=== PATIENT | male | born 1970 | race Caucasian/White ===

== ENCOUNTER → 2018-06-15 | Outpatient (REF) | payer BC ==
[~2018-06-15] MED LIST: SIMV10TA2 PO; ZOVI800T PO
[2018-06-27 08:43] LABS: DRVV SCREEN 46.7 SEC
[2018-06-27 08:46] LABS: PTT LUPUS TYPE ANTICOAG SCREEN 1.1 (0-1.2)
== END ==
LOC: M LABNEURO 11:26
PROVIDERS: ATTEND Psychiatry & Neurology Neurology
DX: M54.5 Low back pain (principal)

== ENCOUNTER → 2018-06-16 | Outpatient (REF) | payer BC ==
[2018-06-16 14:06] LABS: RHEUMATOID FACTOR QUANT < 10.0 IU/ML (<15.0); TOTAL PROTEIN 6.8 GM/DL (6.4-8.2)
[2018-06-16 14:15] LABS: FOLATE > 24.0 NG/ML; VITAMIN B12 LEVEL 511 PG/ML
[2018-06-17 13:58] LABS: ALBUMIN 4.56 GM/DL (3.29-5.55); ALPHA-1-GLOBULIN % 3.4 % (2.9-4.9); ALPHA-1-GLOBULINS 0.23 GM/DL (0.17-0.41); ALPHA-2-GLOBULINS 0.64 GM/DL (0.42-0.99); ALPHA-2-GLOBULINS % 9.4 % (7.1-11.8); BETA-1-GLOBULINS 0.42 GM/DL (0.28-0.60); BETA-1-GLOBULINS % 6.2 % (4.7-7.2); BETA-2-GLOBULINS 0.35 GM/DL (0.19-0.55); BETA-2-GLOBULINS % 5.1 % (3.2-6.5); GAMMA GLOBULIN % 8.9 % (11.1-18.8); GAMMA GLOBULINS 0.61 GM/DL (0.65-1.58)
[2018-06-17 14:15] LABS: ANTINUCLEAR ANTIBODIES DIRECT Negative (Negative)
== END ==
LOC: M LABNEURO 10:46
PROVIDERS: ATTEND Psychiatry & Neurology Neurology
DX: M54.5 Low back pain (principal); G62.9 Polyneuropathy, unspecified

== ENCOUNTER 2018-09-16 06:49 | Day surgery (SDC) | payer BC ==
[~2018-09-16] VITALS: Ht 165.1 cm; Wt 82.1 kg
[~2018-09-16 06:49] MED LIST changes: +ASPI81TA85 PO; +GABA-843 PO
[2018-09-16] MEDS ORDERED: NS 1,000 ML IV ONE (07:15)
[2018-09-16] MEDS ORDERED: PROPOFOL 200 MG/20 ML VIAL As Ordered ONE (07:39)
[2018-09-16] MEDS ORDERED: LIDOCAINE 2% INJ 100 MG/5 ML SDV (FOR ANES.) As Ordered ONE (07:39)
[2018-09-16] MEDS ORDERED: GLYCOPYRROLATE INJ 0.2 MG/ML 2 ML VIAL As Ordered ONE (08:05)
[2018-09-16 08:30] VITALS: BP 126/85
--- NOTE | 2018-09-16 10:56 | ROOR ---
Patient Name: Efra Antoine Procedure Date: 09/16/2018 7:32 AM Date of : 1970 Age: 48 Room: [facility] Gender: Male Note Status: Finalized Procedure: Colonoscopy Indications: High risk colon cancer surveillance: Personal history of colonic polyps, Last colonoscopy: July 2015 Providers: Yo HORNER MD Referring MD: JAMEL RAMOS Requesting Provider: Medicines: Monitored Anesthesia Care Complications: No immediate complications. Procedure: Pre-Anesthesia Assessment: - The heart rate, respiratory rate, oxygen saturations, blood pressure, adequacy of pulmonary ventilation, and response to care were monitored throughout the procedure. The Colonoscope was introduced through the anus and advanced to the cecum, identified by appendiceal orifice and ileocecal valve. The colonoscopy was performed without difficulty. The patient tolerated the procedure well. The quality of the bowel preparation was good. Findings: The perianal and digital rectal examinations were normal. Retroflexion in the right colon was performed. Small Internal Hemorrhoids. The entire examined colon appeared normal on direct and retroflexion views. Impression: - Small Internal Hemorrhoids. - The entire examined colon is normal on direct and retroflexion views. - No specimens collected. Recommendation: - Repeat colonoscopy in 5 years for surveillance based on personal history of previous adenomatous polyps. Yo Horner MD Yo HORNER MD 09/16/2018 7:52:14 AM This report has been signed electronically. Number of Addenda: 0 Note Initiated On: 09/16/2018 7:32 AM Estimated Blood Loss: Estimated blood loss: none.
== END 2018-09-16 08:40 | disposition home or self-care (01) ==
LOC: M OPP 06:49
PROVIDERS: ATTEND Internal Medicine Gastroenterology
DX: Z12.11 Encounter for screening for malignant neoplasm of colon (principal); Z86.010 Personal history of colon polyps; K64.8 Other hemorrhoids; Z79.82 Long term (current) use of aspirin; Z79.899 Other long term (current) drug therapy; Z80.0 Family history of malignant neoplasm of digestive organs; Z87.891 Personal history of nicotine dependence

== ENCOUNTER → 2019-05-11 | Outpatient (REF) | payer BC ==
[2019-05-11 14:15] LABS: BASO % 0.6 % (0.0-1.0); EOS # 0.1 10^3/uL (0.0-0.5); EOS % 2.1 % (0.0-3.0); HEMATOCRIT 47.5 % (42.0-52.0); HEMOGLOBIN 15.2 g/dl (13.5-17.5); LYMPH # 1.8 10^3/uL (1.5-5.0); LYMPH % 33.8 % (24.0-44.0); MEAN CORPUSCULAR HEMOGLOBIN 30.2 pg (27.0-33.0); MEAN CORPUSCULAR VOLUME 94.4 fl (80.0-96.0); MONO # 0.5 10^3/uL (0.0-0.8); MONO % 9.6 % (0.0-5.0); NEUTROPHILS # 2.8 10^3/uL (1.5-8.5); NEUTROPHILS % 53.3 % (36.0-66.0); PLATELET COUNT, AUTOMATED 202 10^3/uL (150-450); RED BLOOD COUNT 5.03 10^6/uL (4.30-6.10); WHITE BLOOD COUNT 5.2 10^3/uL (4.0-10.0)
[2019-05-11 14:20] LABS: ALBUMIN 4.3 GM/DL (3.2-5.2); ALT/SGPT 43 U/L (12-78); BILIRUBIN,TOTAL 0.3 MG/DL (0.2-1.0); BLOOD UREA NITROGEN 21 MG/DL (7-18); CALCIUM LEVEL 9.2 MG/DL (8.5-10.1); CARBON DIOXIDE LEVEL 27 MEQ/L (21-32); CHLORIDE LEVEL 112 MEQ/L (98-107); CREATININE FOR GFR 1.06 MG/DL (0.70-1.30); GLOMERULAR FILTRATION RATE > 60.0 (>56); GLUCOSE, FASTING 101 MG/DL (70-100); POTASSIUM SERUM 4.5 MEQ/L (3.5-5.1); SODIUM LEVEL 144 MEQ/L (136-145); TOTAL PROTEIN 7.4 GM/DL (6.4-8.2)
== END ==
LOC: M LABNEURO 10:29
PROVIDERS: ATTEND Psychiatry & Neurology Neurology
DX: M54.5 Low back pain (principal)

== ENCOUNTER 2019-09-14 14:49 | Emergency (ER) | payer BC ==
[~2019-09-14] VITALS: Ht 165.1 cm; Wt 76.7 kg
[~2019-09-14 14:49] MED LIST changes: -SIMV10TA2 PO; +SIMV10TA21 PO
[2019-09-14] MEDS ORDERED: NORCO, ANEXSIA 5/325MG TABLET (HYDROcodone/ACETAMINOPHEN) PO ONE (15:45)
[2019-09-14] MEDS ORDERED: LIDOCAINE W/EPINEPHRINE 1% 20ML VIAL SC ONE (16:15)
[2019-09-14 18:18] VITALS: BP 112/70
--- NOTE | 2019-09-15 10:38 | ER ---
DATE OF CONSULTATION: 09/14/2019 REASON FOR CONSULTATION: Thrombosed hemorrhoid. HISTORY OF PRESENT ILLNESS: The patient is a pleasant 49-year-old man who reports no prior history of any anorectal issues. He has had no surgery. He denies any history of known hemorrhoids. He reports that on Thursday the he noted a little mild discomfort in the anal region. By Thursday, he was seen at the [facility] emergency department where they diagnosed a hemorrhoid. He reports that they "tried to push it back in" without success. They recommended some topical creams for the area and advised him that if it got worse, he should go to [place] for treatment. He reports that the pain has intensified and has become unbearable and he presented to the emergency department at 2:49 on September 13. He was seen by the physician's occupational therapist assistant and I am now asked to evaluate his issue. ALLERGIES: The patient denies any known medical allergies. MEDICATIONS: He takes an 81 mg aspirin daily and uses gabapentin 300 mg three times a day. This has not been taken in about 2 weeks. He also has a prescription for some Zovirax. PRIMARY CARE PROVIDER: His primary physician is Dr. Stephany Kelly. PAST MEDICAL HISTORY: Patient has had some hand surgery and has had several colonoscopies due to a family history of colorectal cancer. Medical history is significant for some back pain. FAMILY HISTORY: Family history is significant for history of colorectal cancer. SOCIAL HISTORY: The patient is employed at [employer] and his employment involves some significant lifting. REVIEW OF SYSTEMS: Negative other than those items mentioned in his past medical history. Physical exam is limited to the perineum. He is noted to have an approximately 3 cm wide thrombosed hemorrhoid in a left lateral position. This appears slightly dusky in one small area medially. It is exquisitely tender. There is no sign of infection. IMPRESSION: Thrombosed hemorrhoid of recent onset. PLAN: The patient was counseled for incision and drainage of his thrombosed hemorrhoid. I advised him that this will not relieve all of his discomfort and will create an open wound at the anal verge, but that by relieving the pressure this should resolve significantly faster. He had an opportunity to ask questions. I did perform a incision and drainage and actually a partial excision of his thrombosed hemorrhoid with removal of a large amount of clot. He tolerated this well. This is outlined in a separate procedure note. The wound was wicked with some Betadine gauze. The patient was counseled regarding local wound care including warm soaks or showers for 10 or 5 minutes three to four times per day. He should remove the current wick of gauze later this evening. He should anticipate a small amount of bleeding when he does this. It should be easily controlled by light pressure, if necessary. He should call my office in the morning for a followup appointment in a week to 10 days. I advised him that he should be comfortable enough to return to work on Thursday09/19/2019. He can use mild [id number] analgesics as necessary. REAL
--- NOTE | 2019-09-15 11:48 | RO ---
DATE OF PROCEDURE: 09/14/2019 PREOPERATIVE DIAGNOSIS: Thrombosed hemorrhoid. POSTOPERATIVE DIAGNOSIS: Thrombosed hemorrhoid. PROCEDURE PERFORMED: Incision and drainage and partial excision of large thrombosed hemorrhoid. SURGEON: Dariel Whitaker MD EXECUTIVE DIRECTOR [employer] WORK[employer]: None. ANESTHESIA: Local of 1% Xylocaine with epinephrine. INDICATIONS FOR PROCEDURE: Patient is a 49-year-old man with an approximately three day old large thrombosis of a left lateral hemorrhoid. He is in marked discomfort and is now for incision and drainage. OPERATIVE PROCEDURE: The area was prepped gently with Betadine. Local anesthesia was achieved with infiltration of 1% Xylocaine with epinephrine. A radially oriented elliptical excision of the distended hemorrhoidal tissue was performed. This took out a strip of anoderm about 2 cm in length by a centimeter in width. A large amount of clot was then released. I did some dissection with scissors to open up some additional areas of clotting extending anteriorly and posteriorly, and as much clot as could be was removed. There was no significant bleeding. The wound was wicked with a piece of Betadine gauze and a bulky bandage was applied. The patient tolerated the procedure well. [facility] HOSPITALSalima
== END 2019-09-14 18:23 | disposition home or self-care (01) ==
LOC: M ED 14:49
DX: K64.5 Perianal venous thrombosis (principal); Z80.0 Family history of malignant neoplasm of digestive organs; Z79.82 Long term (current) use of aspirin; Z79.899 Other long term (current) drug therapy

== ENCOUNTER → 2020-01-16 | Outpatient (CLI) | payer BC ==
[~2020-01-16] MED LIST changes: -ASPI81TA85 PO; +ASPI81TA86 PO; +LIDOCAINE 1% MDV 20ML VIAL As Ordered ONE; +TRIAMCINOLONE ACETONIDE SUSP 40 MG/ML VIAL (J3301) As Ordered ONE
--- NOTE | 2020-01-16 18:42 | REP ---
Reason For Exam/Comment: Superior glenoid labral lesion Procedure: Right biceps tendon sheath injection The procedure was performed by BULMARO Dillon, under the direct supervision of Dr. Guerrero. The benefits and risks including but not limited to pain, infection, bleeding and anaphylaxis were explained to the patient and informed consent was obtained both verbally and written. Directly prior to the start of the procedure, a formal timeout was completed in the procedure room. Using ultrasound guidance the right biceps tendon sheath and tendon were localized. The skin was prepped and draped in the usual sterile fashion. Using a 25 gauge needle and ultrasound guidance 2 mL of 1% lidocaine 10 mg/ml was used as a local anesthetic. This 25 gauge needle was advanced into the right biceps tendon sheath. A 3 mL solution containing a 2 mL 1% lidocaine 10 mg/ml and 1 ml of Kenalog 40 mg/ml was injected into the right biceps tendon sheath. The needle was removed and hemostasis was achieved. The patient tolerated the procedure well and there were no immediate complications. Reviewed by BULMARO Bowen 01/16/2020 05:05 P Electronically Signed by Lee Guerrero MD 01/16/2020 06:34 P
== END ==
LOC: M IRPRO 08:41
PROVIDERS: ATTEND Orthopaedic Surgery Sports Medicine
DX: S43.431A Superior glenoid labrum lesion of right shoulder, initial encounter (principal)
CPT/HCPCS: 20611; J3301

== ENCOUNTER → 2020-04-20 | Outpatient (CLI) | payer BC ==
[~2020-04-20] MED LIST changes: -LIDOCAINE 1% MDV 20ML VIAL As Ordered ONE; -TRIAMCINOLONE ACETONIDE SUSP 40 MG/ML VIAL (J3301) As Ordered ONE
--- NOTE | 2020-05-01 13:16 | SLEEPHOME ---
DATE: 04/20/2020 ORDERED BY: Bettie Castro NP Diagnostic home sleep testing was performed due to concern for the obstructive sleep apnea syndrome. For testing, a Nox T3 respiratory monitoring device was used. Continuous record was made of pulse, oxygen saturation, air flow, chest and abdominal strain, and body position. Nine hours and 59 minutes of data were reviewed. There were 8 hours and 4 minutes marked as time in bed. During the interval marked time in bed, there were 69 respiratory events identified of 10 seconds in duration or greater for a respiratory event index of 8.6. The events were primarily obstructive. Baseline pulse rate was 58 beats per minute. Pulse rate ranged 45 to 96. Baseline saturation was 94%. Saturations fell to 84%. Testing was performed in both the supine and nonsupine positions. IMPRESSION: Abnormal home sleep testing with repetitive respiratory events and oxygen desaturations to 84% with a respiratory event index of 8.6 is consistent with the obstructive sleep apnea syndrome. RECOMMENDATION: The patient should be encouraged to undergo a formal sleep evaluation. [facility]
== END ==
LOC: M SLEEP HO 11:04
PROVIDERS: ATTEND Nurse Practitioner Family
DX: R06.83 Snoring (principal)

== ENCOUNTER 2024-01-29 06:48 | Day surgery (SDC) | payer BC ==
[~2024-01-29] VITALS: Ht 165.1 cm; Wt 87.8 kg
[~2024-01-29 06:48] MED LIST changes: +ACYC1TAB4 PO; +B-12100010 PO; +CITA10TA7 PO; +ECOT81TA5 PO; +FENO160T10 PO; +GABA-282 PO; -GABA-843 PO; +LORA-753 PO; +MULTTAB61 PO; +ODOR100T3 PO; +ROSU10TA61 PO
[2024-01-29] MEDS: NS 1,000 ML IV ONE (07:11)
[2024-01-29] MEDS ORDERED: propofoL 200 MG/20 ML VIAL As Ordered ONE (07:38)
[2024-01-29] MEDS ORDERED: LIDOCAINE 2% 100MG/5ML SDV (FOR ANES.) As Ordered ONE (07:39)
[2024-01-29 08:09] VITALS: TEMP 97.1
[2024-01-29 08:25] VITALS: BP 114/63; O2SAT 95
== END 2024-01-29 08:31 | disposition home or self-care (01) ==
LOC: M OPP 06:48
PROVIDERS: ATTEND Internal Medicine Gastroenterology
DX: Z12.11 Encounter for screening for malignant neoplasm of colon (principal); K63.5 Polyp of colon; K64.8 Other hemorrhoids; Z86.010 Personal history of colon polyps; Z80.0 Family history of malignant neoplasm of digestive organs; F17.220 Nicotine dependence, chewing tobacco, uncomplicated; G47.30 Sleep apnea, unspecified; Z99.89 Dependence on other enabling machines and devices; Z79.02 Long term (current) use of antithrombotics/antiplatelets; Z79.2 Long term (current) use of antibiotics; Z79.891 Long term (current) use of opiate analgesic; Z79.899 Other long term (current) drug therapy

== ENCOUNTER 2025-05-08 19:46 | Emergency (ER) | payer BC ==
[~2025-05-08] VITALS: Ht 165.1 cm; Wt 95.4 kg
[~2025-05-08 19:46] MED LIST changes: +GABA-1172 PO; -GABA-282 PO; -ROSU10TA61 PO; +ROSU10TA90 PO
[2025-05-08 23:04] VITALS: TEMP 97.6
[2025-05-08] MEDS: IPRATROPIUM 0.5 MG/ALBUTEROL 2.5 MG INH SOL UD 3 ML NEB ONE (23:39)
[2025-05-08 23:45] VITALS: BP 123/77; O2SAT 100
[2025-05-09] MEDS ORDERED: IPRATROPIUM 0.5 MG/ALBUTEROL 2.5 MG INH SOL UD 3 ML NEB ONE
[2025-05-09] MEDS ORDERED: BENZONATATE 100 MG CAPSULE As Ordered ONE (01:32)
== END 2025-05-09 03:04 | disposition home or self-care (01) ==
LOC: M ED 19:46
DX: J06.9 Acute upper respiratory infection, unspecified (principal); Z79.899 Other long term (current) drug therapy
CPT/HCPCS: 71046; 87486; 87581; 87633; 87798; 94640; 96372; 99284; J1100